=== PATIENT | male | born 1960 | race Caucasian/White ===

== ENCOUNTER 2020-04-27 06:32 | Day surgery (SDC) | payer OTHER, SELFPAY ==
[2020-04-27] MEDS ORDERED: fentaNYL citrate 0.05 MG/ML VIAL ONE (08:21)
[2020-04-27] MEDS ORDERED: LIDOCAINE 2% 100 MG/5 ML UJET TP ONE (08:21)
[2020-04-27] MEDS ORDERED: fentaNYL citrate 0.05 MG/ML VIAL IVP ONE (09:00)
== END 2020-04-27 09:25 | disposition home or self-care (01) ==
LOC: MDS 06:32 → MFCC 06:40 → MDS 09:25
PROVIDERS: ATTEND Internal Medicine Gastroenterology
DX: R14.0 Abdominal distension (gaseous) (principal); R19.7 Diarrhea, unspecified; E11.9 Type 2 diabetes mellitus without complications; E66.3 Overweight; Z11.59 Encounter for screening for other viral diseases; Z68.29 Body mass index [BMI] 29.0-29.9, adult; Z90.49 Acquired absence of other specified parts of digestive tract; Z98.890 Other specified postprocedural states; Z79.899 Other long term (current) drug therapy
CPT/HCPCS: 45378; J3010; U0003